=== PATIENT | female | born 1990 | race Two or more races ===

== ENCOUNTER 2024-04-16 13:45 | Inpatient (IN) | payer OTHER ==
[~2024-04-16] VITALS: Ht 154.9 cm; Wt 59.0 kg
[2024-04-18] MEDS ORDERED: ERYTHROMYCIN BASE 1 GM TUBE OP ONE (23:24)
[2024-04-18] MEDS ORDERED: OXYTOCIN 20 UNITS/1000ML RL PIGGYBAG IV ONE (23:24)
[2024-04-18] MEDS ORDERED: CHLORHEXIDINE GLUCONATE 120 ML BOTTLE TOP ONE (23:25)
[2024-04-18] MEDS ORDERED: LIDOCAINE HCL 1% 10ML VIAL ONE ×2 (23:25→23:42)
[2024-04-19] MEDS ORDERED: LIDOCAINE HCL 1% 10ML VIAL IJ ONE ×2 (01:15→01:30)
[2024-04-19] MEDS ORDERED: RINGERS SOLUTION,LACTATED 1,000 ML IV SCH (01:15)
[2024-04-19] MEDS ORDERED: MORPHINE SULFATE 4 MG/ML CARTRIDGE IV ONE (01:15)
[2024-04-19 01:16] LABS: INR < 0.93; PARTIAL THROMBOPLASTIN TIME 29.6 SECONDS (22.0-34.0); PROTHROMBIN TIME 9.4 SECONDS (9.0-11.5)
[2024-04-19] MEDS ORDERED: CHLORHEXIDINE GLUCONATE 120 ML BOTTLE TOP ONE (01:30)
[2024-04-19] MEDS ORDERED: CHLORHEXIDINE GLUCONATE 120 ML BOTTLE TOP SCH (01:30)
[2024-04-19] MEDS ORDERED: OxyCODONE HCL/APAP UD (PERCOCET) PO PRN (01:30)
[2024-04-19] MEDS ORDERED: ERYTHROMYCIN BASE 1 GM TUBE OP ONE (01:30)
[2024-04-19] MEDS ORDERED: ERYTHROMYCIN BASE 1 GM TUBE OP SCH (01:30)
[2024-04-19] MEDS ORDERED: OXYTOCIN 1,000 ML IV SCH ×2 (01:30)
[2024-04-19 01:32] LABS: HEMATOCRIT 37.4 % (36.0-45.00); HEMOGLOBIN 12.9 g/dL (12.0-15.00); MEAN CELL VOLUME 72.5 fL (80.00-100.00); MEAN CORPUSCULAR HGB CONC 34.5 g/dl (32.0-36.0); PLATELET COUNT 404 K/uL (150-450); RED BLOOD COUNT 5.16 M/uL (4.00-6.00); RED CELL DISTRIBUTION WIDTH 15.3 % (11.5-14.5)
[2024-04-19 01:54] LABS: ALBUMIN 2.7 gm/dL (3.4-5.0); BILIRUBIN TOTAL 0.36 mg/dL (0.3-1.2); CALCIUM 9.3 mg/dL (8.5-10.1); CREATININE SERUM 0.4 mg/dL (0.55-1.02); GFR 184.97; GLOBULINA 3.9 G/DL (2.4-3.5); POTASSIUM 3.72 mEq/L (3.5-5.1); TOTAL PROTEIN 6.6 gm/dL (6.4-8.2)
[2024-04-19] MEDS ORDERED: KETOROLAC TROMETHAMINE 10 MG TABLET PO SCH (06:00)
[2024-04-19 06:43] LABS: ABG PH 7.353 (7.35-7.45); ABG PO2 34.6 mmHg (80-100); ABG pCO2 43.7 mmHg (35-45); BASE EXCESS -1.9 mmol/l; BICARBONATE 23.8 mmol/l (23-25); SaO2 62.7 %; Tco2 25.1 mmol/l; o2 21 %
== END 2024-04-21 13:08 | disposition home or self-care (01) | DRG 807 ==
LOC: LDR 04-18 23:22 → OB/GYN 04-19 01:35 → SURG 04-27 13:45
PROVIDERS: Obstetrics & Gynecology Maternal & Fetal Medicine; ADMIT Obstetrics & Gynecology; ATTEND Obstetrics & Gynecology
PROC: 4A1HXCZ Monitoring of Products of Conception, Cardiac Rate, External Approach (ICD-10-PCS; 2024-04-18)
PROC: 10E0XZZ Delivery of Products of Conception, External Approach (ICD-10-PCS; principal; 2024-04-19)
PROC: 0KQM0ZZ Repair Perineum Muscle, Open Approach (ICD-10-PCS; 2024-04-19)
DX: O70.1 Second degree perineal laceration during delivery (principal); Z37.0 Single live birth; Z3A.38 38 weeks gestation of pregnancy; Z20.822 Contact with and (suspected) exposure to COVID-19